=== PATIENT | female | born 1980 | race Caucasian/White ===

== ENCOUNTER 2021-04-24 11:12 | Emergency (ER) | payer OTHER, SELFPAY ==
[2021-04-24] MEDS ORDERED: ACETAMINOPHEN 500 MG TAB ONE (11:53)
[2021-04-24 13:02] LABS: SARS-COV-2 RT PCR POSITIVE (NEGATIVE)
--- NOTE | 2021-04-24 13:23 | ER ---
Nurse's Notes [facility] Name: Nancy Velázquez Age: 40 yrs Sex: Female : 1980 Arrival Date: 04/24/2021 Time: 11:12 Bed 12 Private MD: Diagnosis: Coronavirus infection, unspecified Presentation: 04/24 11:23 Chief complaint: Patient states: For the past two days has had body aches, chills, vg1 cough, fever, N/V, and sore throat. Coronavirus screen: Vaccine status: Patient reports being unvaccinated. Client denies travel out of the [place] in the last 14 days. Client presents with at least one sign or symptom that may indicate coronavirus-19. Standard/surgical mask placed on the client. Ebola Screen: Patient negative for fever greater than or equal to 101.5 degrees Fahrenheit, and additional compatible Ebola Virus Disease symptoms. Initial Sepsis Screen: Does the patient meet any 2 criteria? No. Patient's initial sepsis screen is negative. Does the patient have a suspected source of infection? No. Patient's initial sepsis screen is negative. Risk Assessment: Do you want to hurt yourself or someone else? Patient reports no desire to harm self or others. Onset of symptoms was April 22, 2021. 11:23 Method Of Arrival: Ambulatory vg1 11:23 Acuity: SHANELLE 3 vg1 Triage Assessment: 11:25 General: Appears in no apparent distress. comfortable, Behavior is calm, cooperative. vg1 Pain: Complains of pain in neck and back. 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 - Social history:: Smoking status: Reported history of juuling and/or vaping. Patient uses marijuana. Screenin:23 Abuse screen: Denies threats or abuse. Denies injuries from another. Nutritional ss screening: No deficits noted. Tuberculosis screening: Never had TB. Fall Risk None identified. Assessment: 12:23 General: Appears in no apparent distress. ill, Behavior is calm, cooperative, Reports ss feeling ill for fatigue for. Neuro: Level of Consciousness is awake, alert, obeys commands, Oriented to person, place, time, situation, Gait is steady. Cardiovascular: Capillary refill < 3 seconds is brisk in bilateral fingers. Respiratory: Airway is patent Respiratory effort is even, unlabored, Respiratory pattern is regular, symmetrical. EENT: Oral mucosa is moist. Derm: Skin is intact, is healthy with good turgor, Skin is dry, Skin is pink, warm \T\ dry. normal. 13:02 Reassessment: JOHANNA Izaguirre notified of positive COVID test. Awaiting disposition. ss Vital Signs: 11:23 BP 141 / 92; Pulse 113; Resp 20; Temp 100.5(O); Pulse Ox 100% ; Weight 72.57 kg; Height vg1 5 ft. 8 in. (172.72 cm); Pain 9/10; 12:23 Temp 99.8(O); ss 11:23 Body Mass Index 24.33 (72.57 kg, 172.72 cm) vg1 ED Course: 11:12 Patient arrived in ED. am2 11:25 Triage completed. vg1 11:25 Arm band placed on. vg1 11:28 Dmitriy Humphreys NP is [facility]. pm1 11:28 All Cade MD is Attending Physician. pm1 11:33 COVID swab sent to lab. Flu and/or RSV swab sent to lab. Strep swab sent to lab. vg1 12:23 Francoise Moreno RN is Primary Nurse. ss 12:23 Patient has correct armband on for positive identification. Bed in low position. ss 13:02 No provider procedures requiring assistance completed. Patient did not have IV access ss during this emergency room visit. Administered Medications: 11:30 Drug: Tylenol 1000 mg Route: PO; vg1 13:27 Follow up: Response: No adverse reaction; Temperature is decreased ss Outcome: 13:22 Discharge ordered by . pm1 13:27 Discharged to home ambulatory. ss 13:27 Condition: good 13:27 Discharge instructions given to patient, Instructed on discharge instructions, follow up and referral plans. Demonstrated understanding of instructions, follow-up care. 13:28 Patient left the ED. ss Signatures: Francoise Moreno RN RN Dmitriy Humphreys NP DRAMATIC DIRECTOR pm1 Winsome Bonilla am2 Gabi Zabala, RN RN vg1
--- NOTE | 2021-04-24 13:23 | EDPHYS ---
Physician Documentation [facility] Name: Nancy Velázquez Age: 40 yrs Sex: Female : 1980 Arrival Date: 04/24/2021 Time: 11:12 Bed 12 Private MD: ED Physician All Cade HPI: 04/24 12:39 This 40 yrs old Female presents to ER via Ambulatory with complaints of r/o pm1 covid. 12:39 The patient or guardian reports cough, with no sputum, That resolved yesterday. Onset: pm1 The symptoms/episode began/occurred 2 day(s) ago. Severity of symptoms: in the emergency department the symptoms Cough has resolved, body aches feel worse. Modifying factors: The symptoms are alleviated by nothing, the symptoms are aggravated by nothing. Associated signs and symptoms: Pertinent positives: fever, sore throat, Headache body ache, Pertinent negatives: chest pain, Shortness of breath. The patient has not recently seen a physician. Patient with 2 sick children at home who had exposure to Covid positive person at a birthday constitution party 4 days ago. Patient with onset of symptoms 2 days ago. 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 - Social history:: Smoking status: Reported history of juuling and/or vaping. Patient uses marijuana. ROS: 12:39 Neck: Negative for injury, pain, and swelling, Cardiovascular: Negative for chest pain, pm1 palpitations, and edema. 12:39 Abdomen/GI: Negative for abdominal pain, nausea, vomiting, diarrhea, and constipation, Back: Negative for injury and pain, MS/Extremity: Negative for injury and deformity, Skin: Negative for injury, rash, and discoloration. 12:39 Constitutional: Positive for body aches, fever, Negative for poor PO intake. 12:39 ENT: Positive for sore throat, Negative for ear pain, difficulty swallowing, difficulty handling secretions. 12:39 Respiratory: Positive for cough, Negative for shortness of breath, sputum production. 12:39 Neuro: Positive for headache. 12:39 All other systems are negative. Exam: 12:39 Constitutional: This is a well developed, well nourished patient who is awake, alert, pm1 and in no acute distress. Head/Face: Normocephalic, atraumatic. 12:39 Skin: Warm, dry with normal turgor. Normal color with no rashes, no lesions, and no evidence of cellulitis. MS/ Extremity: Pulses equal, no cyanosis. Neurovascular intact. Full, normal range of motion. 12:39 Eyes: Exam is negative for acute changes, Pupils: no acute changes, normal size, Extraocular movements: no acute changes, Conjunctiva: no acute changes, no injection, Sclera: no acute changes. 12:39 ENT: External ear(s): are unremarkable, Ear canal(s): no acute changes, TM's: no acute changes, Posterior pharynx: no acute changes, Airway: normal, no evidence of obstruction, Tonsils: are normal in appearance, peritonsillar mass, is not appreciated. 12:39 Cardiovascular: Exam negative for acute changes, Rate: tachycardic, Rhythm: regular, Pulses: no pulse deficits are appreciated, Heart sounds: normal, Edema: is not appreciated. 12:39 Respiratory: Exam negative for acute changes, respiratory distress, shortness of breath, Breath sounds: are clear throughout. 12:39 Abdomen/GI: Inspection: abdomen appears normal, Palpation: abdomen is soft and non-tender, in all quadrants. 12:39 Neuro: Exam negative for acute changes, Orientation: is normal, Mentation: is normal, Motor: moves all fours. Vital Signs: 11:23 BP 141 / 92; Pulse 113; Resp 20; Temp 100.5(O); Pulse Ox 100% ; Weight 72.57 kg; Height vg1 5 ft. 8 in. (172.72 cm); Pain 9/10; 12:23 Temp 99.8(O); ss 11:23 Body Mass Index 24.33 (72.57 kg, 172.72 cm) vg1 MDM: 12:01 Patient medically screened. pm1 13:21 Data reviewed: vital signs. Counseling: I had a detailed discussion with the patient pm1 and/or guardian regarding: the historical points, exam findings, and any diagnostic results supporting the discharge/admit diagnosis, lab results, the need for outpatient follow up, Need for quarantine, to return to the emergency department if symptoms worsen or persist or if there are any questions or concerns that arise at home. 04/24 11:29 Order name: Strep; Complete Time: 12:32 pm1 04/24 12:29 Order name: Throat Culture EDMS 04/24 13:02 Order name: COVID-19/FLU A+B; Complete Time: 13:11 EDMS Administered Medications: 11:30 Drug: Tylenol 1000 mg Route: PO; vg1 13:27 Follow up: Response: No adverse reaction; Temperature is decreased ss Disposition: 18:15 Co-signature as Attending Physician, All Cade MD I agree with the assessment and rn plan of care. Attestation: The patient's history, exam findings, diagnostics, and a summary of any interventions or procedures was reviewed in detail with Dmitriy Humphreys NP. Disposition Summary: 04/24/21 13:22 Discharge Ordered Location: Home pm1 Problem: new pm1 Symptoms: have improved pm1 Condition: Stable pm1 Diagnosis - Coronavirus infection, unspecified pm1 Followup: pm1 - With: Emergency Department - When: As needed - Reason: Worsening of condition Followup: pm1 - With: Private Physician - When: 2 - 3 days - Reason: Recheck today's complaints, Continuance of care, Re-evaluation by your physician Discharge Instructions: - Discharge Summary Sheet pm1 - COVID-19 pm1 - COVID-19 Frequently Asked Questions pm1 - 10 Things You Can Do to Manage Your COVID-19 Symptoms at Home - [facility] pm1 - COVID-19: Quarantine vs. Isolation - [facility] pm1 Forms: - Work release form pm1 - Medication Reconciliation Form pm1 - Thank You Letter pm1 - Antibiotic Education pm1 - Prescription Opioid Use pm1 Signatures: Dispatcher [employer] EDMS All Cade MD MD rn Marinas, Patrick, NP SALES ACCOUNT LEADER pm1 Gabi Zabala RN RN vg1 Francoise Moreno RN ss Corrections: (The following items were deleted from the chart) 12:16 11:29 Influenza Screen (A \T\ B)+BA.LAB.BRZ ordered. EDMS EDMS 12:17 11:29 CORONAVIRUS+MR.LAB.BRZ ordered. EDMS EDMS
[2021-04-24 13:40] VITALS: BP 141/92; O2SAT 100
[2021-04-24 13:45] VITALS: TEMP 99.8
== END 2021-04-24 13:28 | disposition home or self-care (01) ==
LOC: ER 11:12
DX: U07.1 COVID-19 (principal); I10 Essential (primary) hypertension; Z88.3 Allergy status to other anti-infective agents
CPT/HCPCS: 0240U; 87070; 87081; 99283

== ENCOUNTER 2021-06-18 09:38 | Emergency (ER) | payer SELFPAY ==
[2021-06-18] MEDS ORDERED: NA CHLORIDE 0.9% 1,000 ML ONE (10:22)
[2021-06-18] MEDS ORDERED: ONDANSETRON 4 MG/2 ML VIAL ONE ×2 (10:22→11:33)
[2021-06-18 10:59] LABS: Absolute Lymphocytes (CBC) 1.8 K/uL (0.7-4.9); Basophils % 0.7 % (0-1.3); Hematocrit 38.1 % (36.0-45.0); Lymphocytes % 19.9 % (15.3-44.8); MPV 6.4 fL (7.6-11.3); RBC Red Blood Cell Count 4.58 M/uL (3.86-4.86)
[2021-06-18 11:11] LABS: Albumin 3.8 g/dL (3.4-5.0); Bilirubin Total 0.5 mg/dL (0.2-1.0); Potassium 3.9 mmol/L (3.5-5.1); Protein, Total 7.6 g/dL (6.4-8.2)
[2021-06-18 11:46] LABS: SARS-COV-2 RT PCR NEGATIVE (NEGATIVE)
--- NOTE | 2021-06-18 12:58 | EDPHYS ---
Physician Documentation [facility] Name: Nancy Velázquez Age: 40 yrs Sex: Female : 1980 Arrival Date: 06/18/2021 Time: 09:45 Bed 17 Private MD: ED Physician Alex Mane HPI: 06/18 10:10 This 40 yrs old Female presents to ER via Ambulatory with complaints of pm1 Headache, Body aches. 10:10 The patient presents to the emergency department with nausea, vomiting. Onset: The pm1 symptoms/episode began/occurred 3 day(s) ago. Possible causes: possibly from covid. The symptoms are aggravated by food , The symptoms are alleviated by nothing. Associated signs and symptoms: Pertinent negatives: cough, shortness of breath, chest pain, fever, diarrhea. Severity of symptoms: in the emergency department the symptoms are worse. The patient has not recently seen a physician. Patient with diagnosis of covid about 6 weeks ago and reports that she never fully recovered from covid. She feels like her covid symptoms are getting worse: body aches, headache, nausea and vomiting the past three days. Has not gotten a repeat covid test since diagnosis. 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 - Social history:: Smoking status: Patient denies any tobacco usage or history of. ROS: 10:10 ENT: Negative for injury, pain, and discharge, Cardiovascular: Negative for chest pain, pm1 palpitations, and edema, Respiratory: Negative for shortness of breath, cough, wheezing, and pleuritic chest pain. 10:10 Back: Negative for injury and pain, MS/Extremity: Negative for injury and deformity, Skin: Negative for injury, rash, and discoloration. 10:10 Constitutional: Positive for body aches, Negative for fever, poor PO intake. 10:10 Abdomen/GI: Positive for nausea and vomiting, Negative for abdominal pain, diarrhea. 10:10 Neuro: Positive for headache. 10:10 All other systems are negative. Exam: 10:10 Constitutional: This is a well developed, well nourished patient who is awake, alert, pm1 and in no acute distress. Head/Face: Normocephalic, atraumatic. 10:10 Back: No spinal tenderness. No costovertebral tenderness. Full range of motion. Skin: Warm, dry with normal turgor. Normal color with no rashes, no lesions, and no evidence of cellulitis. MS/ Extremity: Pulses equal, no cyanosis. Neurovascular intact. Full, normal range of motion. 10:10 Eyes: Exam is negative for acute changes, Pupils: no acute changes, Extraocular movements: no acute changes, Conjunctiva: no acute changes. 10:10 ENT: Exam is negative for acute changes, External ear(s): are unremarkable, Ear canal(s): are normal, TM's: no acute changes, Mouth: no acute changes, Lips: normal, moist, Oral mucosa: normal, pink and intact, moist. 10:10 Cardiovascular: Exam negative for acute changes, Rate: normal, Rhythm: regular, Pulses: no pulse deficits are appreciated. 10:10 Respiratory: Exam negative for acute changes, respiratory distress, shortness of breath, Breath sounds: are clear throughout. 10:10 Abdomen/GI: Inspection: abdomen appears normal, Palpation: abdomen is soft and non-tender, in all quadrants. 10:10 Neuro: Exam negative for acute changes, Orientation: is normal, Mentation: is normal, Motor: is normal, moves all fours. Vital Signs: 09:57 BP 154 / 106; Pulse 81; Resp 17; Temp 97.9; Pulse Ox 98% on R/A; Weight 79.38 kg; ll1 Height 5 ft. 8 in. (172.72 cm); Pain 8/10; 13:32 BP 164 / 104; Pulse 94; Resp 17; Temp 99.1; Pulse Ox 99% on R/A; jt3 09:57 Body Mass Index 26.61 (79.38 kg, 172.72 cm) ll1 MDM: 10:05 Patient medically screened. pm1 11:10 Data reviewed: vital signs. Data interpreted: Pulse oximetry: on room air is 98 %. pm1 Interpretation: normal. 12:55 Counseling: I had a detailed discussion with the patient and/or guardian regarding: the pm1 historical points, exam findings, and any diagnostic results supporting the discharge/admit diagnosis, lab results, the need for outpatient follow up, to return to the emergency department if symptoms worsen or persist or if there are any questions or concerns that arise at home. 06/18 10:09 Order name: CBC with Diff pm1 06/18 10:09 Order name: CMP pm1 06/18 10:09 Order name: COVID-19 (Coronavirus) Document "Date of Onset" if Symptomatic pm1 06/18 10:09 Order name: Strep pm1 06/18 10:09 Order name: [place] Screen Profile; Complete Time: 11:27 pm1 06/18 10:10 Order name: CBC with Automated Diff; Complete Time: 11:01 EDMS 06/18 10:10 Order name: Comprehensive Metabolic Panel; Complete Time: 11:14 EDMS 06/18 10:50 Order name: COVID-19/FLU A+B; Complete Time: 12:13 EDMS 06/18 11:22 Order name: Throat Culture EDMS 06/18 10:09 Order name: IV Saline Lock; Complete Time: 10:44 pm1 Administered Medications: 10:44 Drug: NS 0.9% 1000 ml Route: IV; Rate: 1000 ml; Site: left antecubital; ll1 12:15 Follow up: Response: No adverse reaction; IV Status: Completed infusion; IV Intake: ll1 1000ml 10:44 Drug: Zofran (Ondansetron) 4 mg Route: IVP; Site: left antecubital; ll1 12:15 Follow up: Response: No adverse reaction ll1 11:37 Drug: Zofran (Ondansetron) 4 mg Route: IVP; Site: left antecubital; ll1 12:15 Follow up: Response: No adverse reaction; Nausea is decreased ll1 Disposition Summary: 06/18/21 12:57 Discharge Ordered Location: Home pm1 Problem: new pm1 Symptoms: have improved pm1 Condition: Stable pm1 Diagnosis - Vomiting pm1 - Viral infection, unspecified pm1 Followup: pm1 - With: Emergency Department - When: As needed - Reason: Worsening of condition Followup: pm1 - With: Private Physician - When: 2 - 3 days - Reason: Recheck today's complaints, Continuance of care, Re-evaluation by your physician Discharge Instructions: - Discharge Summary Sheet pm1 - Vomiting, Adult pm1 - COVID-19 pm1 - COVID-19: What Your Test Results Mean - [facility] pm1 - COVID-19 Frequently Asked Questions pm1 - 10 Things You Can Do to Manage Your COVID-19 Symptoms at Home - [facility] pm1 - COVID-19: Quarantine vs. Isolation - [facility] pm1 Forms: - Medication Reconciliation Form pm1 - Thank You Letter pm1 - Antibiotic Education pm1 - Prescription Opioid Use pm1 - Work release form pm1 Prescriptions: - ondansetron 4 mg Oral tablet,disintegrating - take 1 tablet by ORAL route every 8 hours As needed; 12 tablet; Refills: 0, pm1 Product Selection Permitted Addendum: 06/28/2021 05:22 Co-signature as Attending Physician, Alex Mane MD PA/MEDICAL SUPERVISOR's history reviewed, m a2 patient interviewed, and examined. My personal exam of patient reveals: I agree with assessment and care plan and confirm the diagnosis (es) above. Signatures: Dispatcher [employer] EDMS Dmitriy Humphreys, MEDICAL SUPERVISOR MEDICAL SUPERVISOR pm1 Alex Mane MD MD ma2 Garth Epstein, RN RN ll1 Corrections: (The following items were deleted from the chart) 06/18 10:50 10:10 CORONAVIRUS ordered. EDMS EDMS 10:50 10:10 Influenza Screen (A \\T\\ B)+BA.LAB.BRZ ordered. EDMS EDMS
--- NOTE | 2021-06-18 12:58 | ER ---
Nurse's Notes [facility] Name: Nancy Velázquez Age: 40 yrs Sex: Female : 1980 Arrival Date: 06/18/2021 Time: 09:45 Bed 17 Private MD: Diagnosis: Vomiting;Viral infection, unspecified Presentation: 06/18 09:57 Chief complaint: Patient states: Covid positive for over 6 weeks, diagnosed positive ll1 here. States she never got better. N/V, DARLING, body aches worse than usual for 3 days. No known fever. Coronavirus screen: Vaccine status: Patient reports being unvaccinated. Client denies travel out of the [place] in the last 14 days. fatigue, headache, nausea, Client presents with at least one sign or symptom that may indicate coronavirus-19. Standard/surgical mask placed on the client. Ebola Screen: Patient denies travel to an Ebola-affected area in the 21 days before illness onset. Initial Sepsis Screen: Does the patient meet any 2 criteria? No. Patient's initial sepsis screen is negative. Does the patient have a suspected source of infection? Yes: Productive cough/pneumonia. Risk Assessment: Do you want to hurt yourself or someone else? Patient reports no desire to harm self or others. Onset of symptoms was April 18, 2021. 09:57 Method Of Arrival: Ambulatory 1 09:57 Acuity: SHANELLE 3 ll1 Triage Assessment: 10:00 Headache History: The patient has had previous headaches and this one is similar to ll1 previous episodes. General: Appears in no apparent distress. Behavior is calm, cooperative, appropriate for age. Pain: Complains of pain in head Pain currently is 8 out of 10 on a pain scale. Pain began 2-3 days ago. Also complains of nausea. Neuro: Reports headache. Cardiovascular: No deficits noted. Respiratory: Reports cough that is. GI: Reports nausea, vomiting. 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 - Social history:: Smoking status: Patient denies any tobacco usage or history of. Screenin:01 Abuse screen: Denies threats or abuse. Denies injuries from another. Nutritional jt3 screening: No deficits noted. Tuberculosis screening: No symptoms or risk factors identified. Fall Risk None identified. Assessment: 10:01 General: Appears in no apparent distress. Behavior is calm, cooperative. Pain: jt3 Complains of pain in abdomen. Neuro: No deficits noted. Respiratory: No deficits noted. GI: Pt. reports nausea, abdominal pain, and headache. She states her covid symptoms from 7 weeks ago feel like they "are coming back.". 13:33 Reassessment: Pt. was offered Toradol IM before leaving after the IV was out and jt3 patient stated she thought the provider was going to order Toradol. Pt. stated, "do not worry about it." RN reiterated that Ibuprofen at home could help as well and is in the same class as toradol. Pt. was fine with taking Ibuprofen at home. . Vital Signs: 09:57 BP 154 / 106; Pulse 81; Resp 17; Temp 97.9; Pulse Ox 98% on R/A; Weight 79.38 kg; ll1 Height 5 ft. 8 in. (172.72 cm); Pain 8/10; 13:32 BP 164 / 104; Pulse 94; Resp 17; Temp 99.1; Pulse Ox 99% on R/A; jt3 09:57 Body Mass Index 26.61 (79.38 kg, 172.72 cm) ll1 ED Course: 09:45 Patient arrived in ED. mr 09:50 Dmitriy Humphreys NP is PHCP. pm1 09:50 Alex Mane MD is Attending Physician. pm1 09:56 Garth Epstein, MICHI is Primary Nurse. ll1 09:57 Arm band placed on Patient placed in an exam room, on a stretcher. ll1 09:59 Triage completed. ll1 10:01 Patient has correct armband on for positive identification. Bed in low position. Call jt3 light in reach. 10:01 No provider procedures requiring assistance completed. jt3 10:44 COVID-19 (Coronavirus) Document "Date of Onset" if Symptomatic Sent. ll1 10:44 Strep Sent. ll1 10:44 Inserted saline lock: 22 gauge in left antecubital area, using aseptic technique. Blood ll1 collected. 13:32 IV discontinued, intact, bleeding controlled, No redness/swelling at site. Pressure jt3 dressing applied. Administered Medications: 10:44 Drug: NS 0.9% 1000 ml Route: IV; Rate: 1000 ml; Site: left antecubital; ll1 12:15 Follow up: Response: No adverse reaction; IV Status: Completed infusion; IV Intake: ll1 1000ml 10:44 Drug: Zofran (Ondansetron) 4 mg Route: IVP; Site: left antecubital; ll1 12:15 Follow up: Response: No adverse reaction ll1 11:37 Drug: Zofran (Ondansetron) 4 mg Route: IVP; Site: left antecubital; ll1 12:15 Follow up: Response: No adverse reaction; Nausea is decreased ll1 Intake: 12:15 IV: 1000ml; Total: 1000ml. ll1 Outcome: 12:57 Discharge ordered by MD. pm1 13:36 Patient left the ED. jt3 13:58 Discharged to home ambulatory. jt3 13:58 Condition: good 13:58 Discharge instructions given to patient. Signatures: Gini Michaels mr HumphreysDmitriy, OPERATIONS RESEARCH GROUP MANAGER OPERATIONS RESEARCH GROUP MANAGER pm1 Garth Epstein, MICHI RN ll1 Kyler Fay RN RN jt3 Corrections: (The following items were deleted from the chart) 10:05 09:57 BP 154 / 16; Pulse 81bpm; Resp 17bpm; Pulse Ox 98% RA; Temp 97.9F; 79.38 kg; ll1 Height 5 ft. 8 in.; BMI: 26.6; Pain 8/10; ll1 10:50 10:44 Influenza Screen (A \\T\\ B)+BA.LAB.BRZ drawn and sent. ll1 EDMS 10:50 10:44 CORONAVIRUS drawn and sent. ll1 EDMS
[2021-06-18 13:42] VITALS: BP 164/104; TEMP 99.1; O2SAT 99
== END 2021-06-18 13:36 | disposition home or self-care (01) ==
LOC: ER 09:38
DX: B34.9 Viral infection, unspecified (principal); I10 Essential (primary) hypertension; Z86.16 Personal history of COVID-19; Z88.1 Allergy status to other antibiotic agents
CPT/HCPCS: 0240U; 36415; 80053; 85025; 86308; 87070; 87081; 96361; 96374; 99283; J2405; J7030

== ENCOUNTER 2021-06-25 21:22 | Emergency (ER) | payer OTHER, SELFPAY ==
[2021-06-25] MEDS ORDERED: TETANUS & DIPHTHERIA TOX,ADULT 0.5 ML VIAL ONE (21:38)
[2021-06-25] MEDS ORDERED: LIDOCAINE 1% MPF 5 ML VIAL ONE ×2 (21:43→21:52)
--- NOTE | 2021-06-25 21:44 | RAD REPORT ---
EXAM DESCRIPTION: RAD - Hand Right 2 View - 06/25/2021 9:37 pm CLINICAL HISTORY: laceration COMPARISON: No comparisons FINDINGS: No acute fracture. No malalignment. No significant focal degenerative changes. IMPRESSION: No acute osseous abnormality involving the right hand.
--- NOTE | 2021-06-25 22:27 | ER ---
Nurse's Notes [facility] Name: Nancy Velázquez Age: 40 yrs Sex: Female : 1980 Arrival Date: 06/25/2021 Time: 21:23 Bed 5 Private MD: Diagnosis: Lacerations extensor aspect right 3rd, 4th and 5th fingers Presentation: 06/25 21:27 Chief complaint: EMS states: Called for patient with laceration to right 3rd, 4th, and lp1 5th fingers after using knife to cut open mail package; bleeding controlled on arrival to ED. Coronavirus screen: At this time, the client does not indicate any symptoms associated with coronavirus-19. Ebola Screen: No symptoms or risks identified at this time. Complicating Factors: There are no complicating factors for this patient. Initial Sepsis Screen: Does the patient meet any 2 criteria? No. Patient's initial sepsis screen is negative. Does the patient have a suspected source of infection? No. Patient's initial sepsis screen is negative. Risk Assessment: Do you want to hurt yourself or someone else? Patient reports no desire to harm self or others. Onset of symptoms was June 25, 2021 at 20:45. 21:27 Method Of Arrival: EMS: [facility] lp1 21:27 Acuity: SHANELLE 4 lp1 21:31 Care prior to arrival: Bleeding of injury controlled. lp1 22:38 Note Lacerations noted to 3rd, 4th, 5th digits to right hand. No bleeding noted upon df1 arrival. Dried blood noted to right hand. MSP's intact. 12 sutures to repair all 3 fingers. Antibiotic ointment applied with non-adherent dressing and gauze applied. Triage Assessment: 22:11 General: Appears in no apparent distress. Behavior is calm, cooperative. Pain: df1 Complains of pain in right hand. Injury Description: Laceration sustained to right hand. 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 - Social history:: Smoking status: Patient denies any tobacco usage or history of. Screenin:31 Abuse screen: Denies threats or abuse. Denies injuries from another. Nutritional lp1 screening: No deficits noted. Tuberculosis screening: No symptoms or risk factors identified. Fall Risk None identified. Assessment: 22:13 Musculoskeletal: Capillary refill < 3 seconds, Swelling absent. df1 22:38 General: Appears in no apparent distress. Behavior is calm, cooperative. Pain: Denies df1 pain. Neuro: No deficits noted. Cardiovascular: No deficits noted. Respiratory: No deficits noted. GI: No signs and/or symptoms were reported involving the gastrointestinal system. : No deficits noted. EENT: No deficits noted. Derm: No deficits noted. 22:41 Injury Description: Laceration is clean, not bleeding. df1 Vital Signs: 21:27 BP 123 / 80; Pulse 76; Resp 18; Temp 99(TE); Pulse Ox 100% on R/A; Weight 77.11 kg (R); lp1 Height 5 ft. 8 in. (172.72 cm); Pain 8/10; 21:56 BP 131 / 87; Pulse 74; Resp 18; Pulse Ox 100% on R/A; Pain 5/10; kc4 22:32 BP 135 / 85; Pulse 72; Resp 18; Pulse Ox 99% on R/A; Pain 0/10; df1 21:27 Body Mass Index 25.85 (77.11 kg, 172.72 cm) lp1 ED Course: 21:23 Patient arrived in ED. mw2 21:24 Addi Hernández MD is Attending Physician. pkl 21:30 Triage completed. lp1 21:30 Lisa Rae is Primary Nurse. kc4 21:30 Arm band placed on. lp1 21:31 Patient has correct armband on for positive identification. lp1 21:37 Hand Right 2 View XRAY In Process Unspecified. EDMS 22:12 Assist provider with laceration repair on right hand that was 2.5 cm. or less using df1 sutures. Set up tray. Performed by Addi Hernández MD. Patient did not have IV access during this emergency room visit. Administered Medications: 21:42 Drug: Tetanus-Diphtheria Toxoid Adult 0.5 ml {[employer] Operator: [employer]. Exp: kc4 12/23/2022. Lot #: [id number]. } Route: IM; Site: right deltoid; Outcome: 22:26 Discharge ordered by . gerry 22:40 Discharged to home ambulatory. df1 22:40 Condition: good 22:40 Discharge instructions given to patient, Instructed on discharge instructions, follow up and referral plans. Demonstrated understanding of instructions, follow-up care, wound care. 22:41 Patient left the ED. df1 Signatures: Dispatcher [employer] EDMS Addi Hernández MD MD pkLaura Adam RN RN lp1 Jose Sutherland mw2 Lisa Rae kc4 Jessica Mcmanus df1
--- NOTE | 2021-06-25 22:27 | EDPHYS ---
Physician Documentation [facility] Name: Nancy Velázquez Age: 40 yrs Sex: Female : 1980 Arrival Date: 06/25/2021 Time: 21:23 Bed 5 Private MD: ED Physician Addi Hernández HPI: 06/25 22:17 This 40 yrs old Female presents to ER via EMS with complaints of Laceration pkl To Hand - Right. 22:17 The patient or guardian reports a laceration, 4 cm(s). The complaints affect the pkl Extensor aspect right 3rd, 4th and 5th fingers. Context: resulted from accidental cut with knife. Onset: The symptoms/episode began/occurred just prior to arrival, 1 hour(s) ago. Associated signs and symptoms: The patient has no apparent associated signs or symptoms. 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 - Social history:: Smoking status: Patient denies any tobacco usage or history of. ROS: 22:17 Eyes: Negative for injury, pain, redness, and discharge, ENT: Negative for injury, pkl pain, and discharge, Neck: Negative for injury, pain, and swelling, Cardiovascular: Negative for chest pain, palpitations, and edema, Respiratory: Negative for shortness of breath, cough, wheezing, and pleuritic chest pain, Abdomen/GI: Negative for abdominal pain, nausea, vomiting, diarrhea, and constipation, Back: Negative for injury and pain, : Negative for injury, bleeding, discharge, and swelling, Neuro: Negative for headache, weakness, numbness, tingling, and seizure. 22:17 MS/extremity: Positive for laceration, of the right 3rd, 4th and 5th fingers. 22:17 Neuro: Negative for altered mental status, loss of consciousness. Exam: 22:17 Head/Face: Normocephalic, atraumatic. Eyes: Pupils equal round and reactive to light, pkl extra-ocular motions intact. Lids and lashes normal. Conjunctiva and sclera are non-icteric and not injected. Cornea within normal limits. Periorbital areas with no swelling, redness, or edema. ENT: Nares patent. No nasal discharge, no septal abnormalities noted. Tympanic membranes are normal and external auditory canals are clear. Oropharynx with no redness, swelling, or masses, exudates, or evidence of obstruction, uvula midline. Mucous membranes moist. Neck: Trachea midline, no thyromegaly or masses palpated, and no cervical lymphadenopathy. Supple, full range of motion without nuchal rigidity, or vertebral point tenderness. No Meningismus. Chest/axilla: Normal chest wall appearance and motion. Nontender with no deformity. No lesions are appreciated. Cardiovascular: Regular rate and rhythm with a normal S1 and S2. No gallops, murmurs, or rubs. Normal PMI, no JVD. No pulse deficits. Respiratory: Lungs have equal breath sounds bilaterally, clear to auscultation and percussion. No rales, rhonchi or wheezes noted. No increased work of breathing, no retractions or nasal flaring. Abdomen/GI: Soft, non-tender, with normal bowel sounds. No distension or tympany. No guarding or rebound. No evidence of tenderness throughout. Back: No spinal tenderness. No costovertebral tenderness. Full range of motion. Neuro: Awake and alert, GCS 15, oriented to person, place, time, and situation. Cranial nerves II-XII grossly intact. Motor strength 5/5 in all extremities. Sensory grossly intact. Cerebellar exam normal. Normal gait. 22:17 Musculoskeletal/extremity: Extremities: grossly normal except: noted in the extensor aspect right 3rd, 4th and 5th fingers: laceration. Vital Signs: 21:27 BP 123 / 80; Pulse 76; Resp 18; Temp 99(TE); Pulse Ox 100% on R/A; Weight 77.11 kg (R); lp1 Height 5 ft. 8 in. (172.72 cm); Pain 8/10; 21:56 BP 131 / 87; Pulse 74; Resp 18; Pulse Ox 100% on R/A; Pain 5/10; kc4 22:32 BP 135 / 85; Pulse 72; Resp 18; Pulse Ox 99% on R/A; Pain 0/10; df1 21:27 Body Mass Index 25.85 (77.11 kg, 172.72 cm) lp1 Laceration: 22:17 Wound Repair of 4cm ( 1.6in ) subcutaneous laceration to extensor aspect right 3rd, 4th pkl and 5th fingers. Irregularly shaped.. Minimal bleeding noted.. Distal neuro/vascular/tendon intact. Anesthesia: Local anesthetic administered with 8 mls of 1% lidocaine. Wound prep: Extensive cleansing by me. Skin closed with 12 5-0 Prolene using simple sutures and sterile technique. Dressed with Bacitracin, pressure dressing. Patient tolerated well. MDM: 21:24 Patient medically screened. pkl 22:17 Data reviewed: vital signs, nurses notes. pkl 06/25 21:29 Order name: Hand Right 2 View XRAY; Complete Time: 21:46 pkl Administered Medications: 21:42 Drug: Tetanus-Diphtheria Toxoid Adult 0.5 ml {Health And Wellness Coordinator: [employer]. Exp: kc4 12/23/2022. Lot #: [id number]. } Route: IM; Site: right deltoid; Disposition Summary: 06/25/21 22:26 Discharge Ordered Location: Home pkl Problem: new pkl Symptoms: have improved pkl Condition: Stable pkl Diagnosis - Lacerations extensor aspect right 3rd, 4th and 5th fingers pkl Followup: pkl - With: Private Physician - When: 1 week - Reason: Staple/Suture removal, Re-evaluation by your physician Discharge Instructions: - Discharge Summary Sheet pkl Forms: - Work release form pkl - Medication Reconciliation Form pkl - Thank You Letter pkl - Antibiotic Education pkl - Prescription Opioid Use pkl Signatures: Dispatcher [employer] Addi Caraballo MD MD pkl Laura Pearce, RN RN lp1 Lisa Rae kc4
[2021-06-25 23:07] VITALS: TEMP 99
[2021-06-25 23:08] VITALS: BP 135/85; O2SAT 99
== END 2021-06-25 22:41 | disposition home or self-care (01) ==
LOC: ER 21:22
PROC: 0JQJ0ZZ Repair Right Hand Subcutaneous Tissue and Fascia, Open Approach (ICD-10-PCS; principal; 2021-06-25)
DX: S61.212A Laceration without foreign body of right middle finger without damage to nail, initial encounter (principal); S61.214A Laceration without foreign body of right ring finger without damage to nail, initial encounter; S61.216A Laceration without foreign body of right little finger without damage to nail, initial encounter; W26.0XXA Contact with knife, initial encounter; Y92.009 Unspecified place in unspecified non-institutional (private) residence as the place of occurrence of the external cause; Z23 Encounter for immunization
CPT/HCPCS: 90471; 90714; 99284